=== PATIENT | female | born 1945 | race Caucasian/White ===

== ENCOUNTER → 2016-12-26 | Day surgery (SDC) | payer MEDICARE ==
[~2016-12-26] MED LIST: ATOR10TA15 PO; BUPIVACAINE HCL PF 0.75% 30 ML VIAL ONE; FENO1TAB46 PO; METF500T PO; NEUR400C PO; NORC5TAB PO; TRIAMCINOLONE ACETONIDE 40 MG/ML VIAL I-ARTICULR ONE
--- NOTE | 2016-12-28 07:42 | M6 ---
cc: Lucila DONOVAN DATE 12/26/2016 DATE OF 1945 PROCEDURE Fluoroscopically guided injection bilateral lumbar facet joints (bilateral L3-4, L4-5 and L5-S1 facet joints) PROCEDURE NOTE History and physical was completed and signed. Consent was signed. Procedure site was marked. Medications were listed and reconciled. Pain score was recorded. Allergies were noted. Time out was taken. Fluoroscopy time was recorded where applicable. Sedation was administered or directed by Dr. Donovan. The patient was given oxygen. The patient was monitored by a registered nurse. Total procedure time was greater than 15 minutes. IV was started, blood pressure cuff, pulse oximeter and EKG were applied. The patient was placed in the prone position on a Yaya table sedated with small amounts of propofol titrated to effect. Vital signs were monitored and remained stable throughout the procedure. The lumbar area was prepped with alcohol and 10% Betadine solution and draped with sterile drapes. Fluoroscopy was used in a Aubrey dog view to clearly visualize the bilateral lumbar facet joints at L3-4, L4-5 and L5-S1. Separate sterile 3-1/2-inch 25-gauge spinal needles were advanced into each joint. There was negative aspiration for blood or any other type of fluid and at each location the patient was given 1 mL of Marcaine 0.75% which contained 10 mg of Kenalog. Following this, the patient was observed in recovery area with stable vital signs prior to being discharged. She will be evaluated immediately and with followup to determine if she has a subjective decrease in the usual pain and a corresponding objective increase her functional capabilities. ADDENDUM The above dictation is incorrect, the patient, in fact did not have any sedation for the procedure. MD JEANNE Rivas/BHAVANI /8:38 AM /7:36 AM
== END | disposition home or self-care (01) ==
LOC: PHSDC 06:31
PROVIDERS: ATTEND Pain Medicine Interventional Pain Medicine
DX: M54.5 Low back pain (principal)
CPT/HCPCS: 64493; 64494; 64495; J3301

== ENCOUNTER → 2017-01-24 | Day surgery (SDC) | payer MEDICARE ==
[~2017-01-24] MED LIST changes: -BUPIVACAINE HCL PF 0.75% 30 ML VIAL ONE; -FENO1TAB46 PO; +LIDOCAINE HCL 1% PF 30 ML VIAL INFIL ONE; +SODIUM CHLORIDE 0.9% 10 ML VIAL ONE; -TRIAMCINOLONE ACETONIDE 40 MG/ML VIAL I-ARTICULR ONE; +methylPREDNISolone ACETATE 40 MG/ML VIAL I-ARTICULR ONE
--- NOTE | 2017-01-24 12:04 | M6 ---
cc: CHRISTINA DONOVAN M.D. DATE: 01/24/2017 DATE OF : 1945 PROCEDURE Radiofrequency rhizotomy bilateral lumbar facet joints (bilateral L3-4, L4-5 and L5-S1 facet joints. PROCEDURE NOTE History and physical was completed and signed. Consent was signed. Procedure site was marked. Medications were listed and reconciled. Pain score was recorded. Allergies were noted. Timeout was taken. Fluoroscopy time was recorded where applicable. Sedation was administered or directed by Dr. Donovan. The patient was given oxygen. The patient was monitored by a registered nurse. Total procedure time was greater than 15 minutes. Three levels are being done because imaging studies show arthritis in all lumbar facet joints and because each facet joint is innervated by the medial branches from the nerves above and below that particular joint. The patient reported 50% or greater pain relief from previous diagnostic facet joint blocks done with fluoroscopic guidance. A blood pressure cuff, pulse oximeter and EKG were applied. The patient was placed in the prone position on a Yaya table. No sedation was used. Her back was prepped with alcohol and 10% Betadine solution and draped with sterile drapes. Fluoroscopy was used in a Aubrey dog view to clearly visualize the target areas on the bilateral L3-4, L4-5 and L5-S1 facet joints. The skin was infiltrated with 1% Xylocaine using a 27-gauge needle then an insulated 20-gauge radiofrequency needle was advanced to the cephalad most medial angle of the transverse process as it met the pedicle. There was negative aspiration for blood or any other type of fluid. The patient was given a small amount of local anesthetic and then after waiting approximately two minutes thermal lesions were made at each location at 80 degrees centigrade x 100 seconds. This was followed by injection of a small amount of Depo-Medrol for a total of 80 mg of Depo-Medrol. Following the procedure the patient was taken to the recovery room with stable vital signs, neurologically intact. W. MD JEANNE Guajardo/KARENA /8:12 AM /11:57 AM
== END | disposition home or self-care (01) ==
LOC: PHSDC 06:30
PROVIDERS: ATTEND Pain Medicine Interventional Pain Medicine
DX: M54.5 Low back pain (principal)
CPT/HCPCS: 64635; 64636; J1030

== ENCOUNTER → 2017-07-03 | Day surgery (SDC) | payer MEDICARE ==
[~2017-07-03] MED LIST changes: +BUPIVACAINE HCL PF 0.5% 30 ML VIAL ONE; +LIDOCAINE HCL 1% 30 ML VIAL INFIL ONE; -LIDOCAINE HCL 1% PF 30 ML VIAL INFIL ONE; +NAPR220C22 PO; -SODIUM CHLORIDE 0.9% 10 ML VIAL ONE; +TRIAMCINOLONE ACETONIDE 40 MG/ML VIAL I-ARTICULR ONE
--- NOTE | 2017-07-03 14:49 | M6 ---
cc: Lucila Donovan MD 07/03/2017 PROCEDURE: Fluoroscopically-guided injection, right sacroiliac joint. DESCRIPTION OF THE PROCEDURE: History and physical was completed and signed. Consent was signed. Procedure site was marked. Medications were listed and reconciled. Pain score was recorded. Allergies were noted. Time out was taken. Fluoroscopy time was recorded where applicable. Blood pressure cuff, pulse oximeter were applied. The patient was placed in the prone position on a Yaya table. No sedation was used. Her back was prepped with alcohol and 10% Betadine solution, draped with sterile drapes. Fluoroscopy was used, shooting from medial to lateral to clearly visualize the posterior joint line of the right sacroiliac joint. A sterile 5 inch 22 gauge spinal needle was advanced into the joint under fluoroscopic guidance. There was negative aspiration for blood or any other type of fluid and the patient was given 2 mL of 0.5% Marcaine, 20 mg of Depo-Medrol, and 20 mg of Kenalog. Following this, the patient was taken to the recovery room with stable vital signs, neurologically intact. She will be evaluated immediately and with followup to determine if she has a subjective decrease in her usual pain and a corresponding objective increase in her functional capabilities. Lucila Donovan MD [facility] , 08:36 AM , 09:51 AM
== END | disposition home or self-care (01) ==
LOC: PHSDC 06:54
PROVIDERS: ATTEND Pain Medicine Interventional Pain Medicine
DX: M54.5 Low back pain (principal)
CPT/HCPCS: G0260; J1030; J3301; 27096

== ENCOUNTER → 2017-09-19 | Outpatient (CLI) | payer MEDICARE ==
[~2017-09-19] MED LIST changes: -BUPIVACAINE HCL PF 0.5% 30 ML VIAL ONE; -LIDOCAINE HCL 1% 30 ML VIAL INFIL ONE; -NORC5TAB PO; -TRIAMCINOLONE ACETONIDE 40 MG/ML VIAL I-ARTICULR ONE; -methylPREDNISolone ACETATE 40 MG/ML VIAL I-ARTICULR ONE
[2017-09-19 13:09] LABS: AUTOMATED NEUTROPHIL # 2.7 TH/MM3 (1.8-7.7); BASOPHIL # 0.1 TH/MM3 (0-0.2); BASOPHIL % 1.3 % (0.0-2.0); EOSINOPHIL # 0.1 TH/MM3 (0-0.4); EOSINOPHIL % 2.5 % (0.0-4.0); HEMATOCRIT 38.8 % (35.0-46.0); HEMOGLOBIN 12.8 GM/DL (11.6-15.3); LYMPH % 35.8 % (9.0-44.0); LYMPHOCYTE # 1.8 TH/MM3 (1.0-4.8); MEAN CELL VOLUME 85.3 FL (80.0-100.0); MEAN CORPUSCULAR HEMOGLOBIN 28.1 PG (27.0-34.0); MEAN PLATELET VOLUME 9.4 FL (7.0-11.0); MONOCYTE # 0.4 TH/MM3 (0-0.9); NEUT % 53.4 % (16.0-70.0); PLATELET COUNT 176 TH/MM3 (150-450); RED BLOOD COUNT 4.55 MIL/MM3 (4.00-5.30); RED CELL DISTRIBUTION WIDTH 12.9 % (11.6-17.2); WHITE BLOOD COUNT 5.1 TH/MM3 (4.0-11.0)
[2017-09-19 13:10] LABS: BILIRUBIN, URINE NEG (NEG); BLOOD, URINE NEG (NEG); GLUCOSE,URINE NEG (NEG); KETONE, URINE NEG (NEG); NITRITE,URINE NEG (NEG); PH, URINE 5.5 (5.0-8.5); URINE LEUKOCYTE ESTERASE NEG (NEG)
[2017-09-19 13:12] LABS: URINE COLOR STRAW (YELLW/STRAW)
[2017-09-19 13:36] LABS: WBC, URINE 0-2 /hpf (0-5)
[2017-09-19 13:37] LABS: SQUAMOUS EPITHELIAL CELL URINE 0-2 /hpf (0-5)
== END ==
LOC: PHPRE 11:26
PROVIDERS: ATTEND Pain Medicine Interventional Pain Medicine
DX: Z01.812 Encounter for preprocedural laboratory examination (principal); M54.5 Low back pain; T85.840A Pain due to nervous system prosthetic devices, implants and grafts, initial encounter
CPT/HCPCS: 36415; 81001; 84132; 85025

== ENCOUNTER → 2017-09-28 | Day surgery (SDC) | payer MEDICARE ==
[~2017-09-28] VITALS: Ht 160 cm; Wt 73.0 kg
[~2017-09-28] MED LIST changes: +BUPIVACAINE/EPINEPHRINE 0.5% PF 10 ML VIAL ONE; +CHLORHEXIDINE GLUCONATE 2 % 1 PACK (2 CLOTHS) TOPICAL PRN; +LACTATED RINGER'S 1000 ML IV PRN; +METOPROLOL TARTRATE 25 MG TAB PO PRN; +MIDAZOLAM HCL 2 MG/2 ML VIAL ONE; -NAPR220C22 PO; +POVIDONE IODINE 5% (ANTISEPSIS KIT) 4 APPLICATIONS EACH NARE PRN; +SODIUM CHLORID 0.9% 500 ML IV PRN; +ceFAZolin 1,000 MG/NS 100 ML IV SCH
[2017-09-28 16:05] VITALS: PULSE 84
--- NOTE | 2017-09-28 16:24 | MP ---
cc: Lucila Donovan MD DATE OF OPERATION: 09/28/2017 DATE OF PROCEDURE: 09/28/2017 PROCEDURE PERFORMED: Removal of implanted pulse generator for spinal cord stimulation. PREPROCEDURE DIAGNOSIS: Painful implanted pulse generator, right buttocks. POSTPROCEDURE DIAGNOSIS: Painful implanted pulse generator, right buttocks. DESCRIPTION OF PROCEDURE: An IV was started in the holding area. The patient was given IV antibiotics. The surgical site was marked. The consent form was signed. The patient was taken to the operating room, given general endotracheal anesthesia, placed in the prone position. Her back was prepped with ChloraPrep and draped with sterile drapes. Then, the area over the pulse generator in the right buttocks and the area in the midline of the lumbar spine was infiltrated with 0.5% Marcaine containing epinephrine. An incision was made over the pulse generator and it was exteriorized. Then, an incision was made over the lumbar stimulating leads and the extension wires were cut and removed intact. The implanted electrodes were left in place. Then, the lumbar incision and the buttocks incision were irrigated with Betadine and closed with 3-0 Monocryl in the subcuticular tissue and 3-0 nylon on the skin. The incisions were covered with sterile adhesive dressings, and the patient was taken to the recovery room with stable vital signs, neurologically intact. Lucila Donovan MD [facility] , 04:04 PM , 04:23 PM
[2017-09-28 17:15] VITALS: BP 124/64; PULSE 63; RESP 18; TEMP 97.5; O2SAT 99
== END | disposition home or self-care (01) ==
LOC: PHSDC 11:16
PROVIDERS: ATTEND Pain Medicine Interventional Pain Medicine
DX: T85.840A Pain due to nervous system prosthetic devices, implants and grafts, initial encounter (principal); M79.1 Myalgia; I10 Essential (primary) hypertension; E78.5 Hyperlipidemia, unspecified
CPT/HCPCS: 00300; 63688; J0690; J2250; J3010; J7120